=== PATIENT | female | born 1940 | race Caucasian/White ===

== ENCOUNTER 2024-02-09 13:58 | Outpatient (POV) | payer MEDICARE, SELFPAY ==
[2024-02-09 14:45] VITALS: BP 140/68; PULSE 75; RESP 18; O2SAT 98; BMI 29.2
--- NOTE | 2024-02-09 15:41 | EXP.PAIN.OV ---
HPI Data of Consult Patient: new to practice Consult date: 02/09/24 Requesting Physician: Emperatriz Siddiqi APRN Consult Narrative Reason for consult: Low back pain History of present illness: Ms. Weldon is a 83 year old female who presents today as a new patient. 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 Today she rates her pain a 0 out of 10. Patient states that she has a longstanding history of chronic low back pain that she did try conservative treatment such as oral medications, heat and ice, topicals, injection therapy in the past with minimal relief. She states that some injections would help better than others. Patient did then get tried for a intrathecal pain pump trial that did provide significant improvement and she currently is doing well with this therapy. Patient is not at home refill client and is currently managed with morphine 1 mg/mL with a daily dose of 0.1402 mg/day. She denies any side effects from this medication. She does state that this is helping currently and does not feel like she needs any additional adjustment changes. Patient does state that she drives about [address] that she would like if any way possible that she only has to come in the office once a year. Her Ron has been reviewed and is appropriate. CC: Emperatriz Siddiqi APRN [facility] Disclaimer: The information contained in this section may have been updated after the patient was seen, as this information can be updated by other users. Medical History (Updated 02/09/24 @ 15:51 by Emperatriz Siddiqi APRN) Presence of Watchman left atrial appendage closure device Cholecystitis Cataracts, bilateral Afib COPD (chronic obstructive pulmonary disease) HLD (hyperlipidemia) HTN (hypertension) Surgical History (Updated 02/09/24 @ 14:52 by Grace Bradley RN) Hx of cataract surgery History of loop recorder Family History (Updated 02/09/24 @ 14:52 by Grace Bradley RN) Other Unknown family medical history Social History (Updated 02/09/24 @ 14:53 by Grace Bradley RN) Smoking Status: Never smoker alcohol intake: never current occupational status: retired Travel in the last 8 weeks: None Review of Systems Review of Systems Review of systems:: pertinent systems reviewed and negative unless documented below Review of systems (narrative): Review of Systems: General: No recent weight changes, no fever, no sleep disturbances Respiratory: No cough, no shortness of air, no recurring pulmonary infections Cardiovascular/peripheral vascular: No chest pain, no palpitations, no edema, no shortness of breath Gastrointestinal: No new onset incontinence, normal bowel movements reported Genitourinary: No new onset incontinence Musculoskeletal: Low back pain Psychiatric: [Normal mood/affect] Neurological: [Denies weakness in extremities], [denies balance issues] Meds Home Medications and Allergies Home Medications Medication Instructions Recorded Confirmed Type diltiazem HCl 120 mg 120 mg PO DAILY HEART RATE 02/09/24 02/09/24 History capsule,extended release 24 hr levothyroxine 25 mcg tablet 25 mcg PO DAILY THYROID 02/09/24 02/09/24 History lisinopril 10 mg tablet 10 mg PO DIRECTED BLOOD PRESSURE 02/09/24 02/09/24 History propranolol 10 mg tablet 10 mg PO DIRECTED BLOOD PRESSURE 02/09/24 02/09/24 History New Prescriptions to Start Prescriptions: Allergies Allergy/AdvReac Type Severity Reaction Status Date / Time No Known Allergies Allergy Verified 02/09/24 15:08 Objective Vital signs: Pulse Resp BP Pulse Ox O2 Del Method 75 18 140/68 98 Room Air 02/09/24 14:45 02/09/24 14:45 02/09/24 14:45 02/09/24 14:45 02/09/24 14:45 Narrative: Physical Exam: General: Alert and oriented x3, no acute distress, pleasant and cooperative Lungs: Respirations even and unlabored, symmetrical chest expansion Eyes: PERRL Musculoskeletal: Flexion and extension of lumbar [spine] somewhat guarded secondary to pain, [antalgic gait noted] Neurological: Speech clear, no gross sensory deficit Assessment and Plan *Assessment and plan (1) Degenerative disc disease, lumbar: Status: Acute Category: Medical Code(s): M51.36 - Other intervertebral disc degeneration, lumbar region Plan Patient is doing well currently with her intrathecal morphine and does not require any additional adjustment. I will order the patient a compounded cream. Patient did have complaints that she had some tenderness around her pump site. I have recommended that she try the cream and that in future if it does not get better we can even try trigger point injections. Patient was counseled that I will plan on doing a 6-month telehealth visit and that then we will do a 6-month follow-up in the office. Patient was agreeable to this plan of care. Patient did also state that [facility] might be the closer clinic. I have discussed with the patient in future we will discuss if she wants to be sent to the [facility] location for her in person visits. Patient has been instructed to contact the clinic with any concerns before the next appointment. Dr. Acevedo has reviewed this note and agrees with this plan of care. This note was dictated using voice recognition software and make contain errors or omissions. -- It Is medically necessary for this patient to continue to have their intrathecal pump refilled at regular intervals. This patient had an intrathecal pain pump implanted after meeting criteria of chronic intractable pain for greater than 3 months and failing conservative treatments. Patient has committed and been compliant to the treatment plan and all planned follow up care. Since implantation of the intrathecal pain pump, the patient has had decreased pain and been more functional. Oral medications have been reduced including intake of oral opioids. Patient continues to do well with intrathecal therapy with decrease in pain symptoms and increase in functional status. Stopping intrathecal medications can lead to life threatening withdrawal, seizures, cardiac arrest, severe pain, and possible . Pumps that are not refilled at regular intervals can be damages and cause and need for replacement. We continually titrate dose and concentration to optimize pain relief and function. We are limited in concentration for certain drugs to safely deliver medications through the pump and stay within the recommendations from the Polyanalgesic Consensus Committee Guidelines. Depending on dose and concentration these pumps may need to be refilled sooner than 3 months as we titrate.
== END 2024-02-09 23:59 | disposition home or self-care (01) ==
PROVIDERS: Visit Provider Nurse Practitioner Family
DX: M51.36 Other intervertebral disc degeneration, lumbar region (principal); G89.29 Other chronic pain
CPT/HCPCS: 99202; G0463

== ENCOUNTER 2024-06-15 12:43 | Day surgery (SDC) | payer MEDICARE, SELFPAY ==
[2024-06-15 13:17] VITALS: BP 179/71; PULSE 74; RESP 16; TEMP 36.3; O2SAT 99; BMI 25.7
--- NOTE | 2024-06-15 13:52 | EXP.PAIN.PRO ---
Procedure Date: 06/15/24 Time: 13:30 Anesthesiologist:: Luiz Luis CRNA Complications:: None Pre-procedure Diagnosis:: Degenerative disc lumbar spine multilevels. Lumbar radiculopathy. Lumbar postlaminectomy syndrome. Post-procedure Diagnosis:: Same. Indications for Procedure:: Patient is a pleasant 83-year-old female who comes our clinic today for intrathecal pain pump interrogation and refill. Patient is currently being managed with morphine sulfate 1 mg/mL at a rate of 0.1402 mg/day. She is reporting low back pain that she describes as intermittent, dull, aching, sharp, stabbing at times. She is requesting increase in the pump rate. I think this is reasonable. I will increase her by 20%. Her new rate is 0.1684 mg/day. Patient is awake alert Bivalve x 3. In no acute distress. Flexion-extension lumbar spine somewhat guarded secondary to pain. Deep tendon reflexes upper lower extremities normal. Motor strength upper and lower extremities normal. There is no gross sensory deficit. Gait is normal. Procedure Details:: Details of the procedure explained to the patient. The patient taken procedure and placed in the sitting position. They over the pumps cleansed using chlorhexidine as a cleansing solution. The pump was interrogated. The pump was accessed with ease using a 22-gauge inch and half needle. 6 mL solution was withdrawn discarded appropriately. The pump was then filled with 20 cc of solution containing morphine sulfate 1 mg/mL. Pump rate will increase by 20%. The new rate is 0.1684 mg/day. Patient tolerated procedure without difficulty. There are no complications. Plan and Disposition:: Patient was discharged without incident
[2024-06-15 14:05] VITALS: BP 179/71; PULSE 74; RESP 16; O2SAT 99
== END 2024-06-15 14:05 | disposition home or self-care (01) ==
PROVIDERS: Visit Provider Nurse Anesthetist, Certified Registered
DX: M51.16 Intervertebral disc disorders with radiculopathy, lumbar region (principal); M96.1 Postlaminectomy syndrome, not elsewhere classified
CPT/HCPCS: 62370

== ENCOUNTER 2024-08-24 14:18 | Day surgery (SDC) | payer MEDICARE, SELFPAY ==
[2024-08-24 14:42] VITALS: BP 139/101; PULSE 68; RESP 18; TEMP 37.1; O2SAT 98; BMI 27.3
[2024-08-24 14:46] VITALS: BP 167/89; PULSE 74; RESP 16; O2SAT 96
[2024-08-24 14:48] VITALS: BP 167/89; PULSE 88; RESP 16; O2SAT 98
[2024-08-24 14:56] VITALS: BP 150/78; PULSE 68; RESP 18; TEMP 37; O2SAT 96
--- NOTE | 2024-08-24 15:00 | EXP.PAIN.PRO ---
Procedure Date: 08/24/24 Time: 14:40 Anesthesiologist:: Luiz Luis CRNA Complications:: None Pre-procedure Diagnosis:: Degenerative disc lumbar spine multilevels. Lumbar radiculopathy. Lumbar postlaminectomy syndrome. Post-procedure Diagnosis:: Same. Indications for Procedure:: Patient is a very pleasant 83-year-old female who comes our clinic today for intrathecal pain pump interrogation and refill. Patient currently being managed with morphine sulfate 1 mg/mL at 0.1684 mg/day. Patient is reporting some low back pain that she describes as constant, dull, aching across the low back. She denies radicular symptoms. She is requesting increase. I think this is reasonable. I will increase her intrathecal pain rate by 10%. Her new rate will be 0.1855 mg/day. Patient denies any side effects or complications with intrathecal pain pump. She rates her pain 6/10. Procedure Details:: Details of the procedure explained to the patient. The patient taken procedure and placed in the sitting position. The over the pumps cleansed using chlorhexidine as a cleansing solution. The pump was interrogated. The pump was accessed with ease using a 22-gauge inch and half needle. 7.5 mL of solution was withdrawn discarded appropriately. The pump was then filled with 20 cc of solution containing morphine sulfate 1 mg/mL. Pump rate will be increased by 10%. The new rate will be 0.1855 mg/day. Patient tolerated procedure without difficulty. There are no complications. Plan and Disposition:: Patient was discharged without incident.
== END 2024-08-24 14:57 | disposition home or self-care (01) ==
PROVIDERS: Visit Provider Nurse Anesthetist, Certified Registered
DX: M51.16 Intervertebral disc disorders with radiculopathy, lumbar region (principal); M96.1 Postlaminectomy syndrome, not elsewhere classified
CPT/HCPCS: 62370

== ENCOUNTER 2024-10-29 11:26 | Day surgery (SDC) | payer MEDICARE, SELFPAY ==
--- NOTE | 2024-10-29 11:33 | P.PCN_ITS ---
Procedure Date: 10/29/24 Time: 11:53 Anesthesiologist:: Emperatriz Siddiqi APRN Complications:: None Pre-procedure Diagnosis:: Degenerative disc disease of lumbar spine with lumbar radiculopathy symptoms Post-procedure Diagnosis:: Same Indications for Procedure:: Patient is a pleasant 84-year-old female who presents today for intrathecal refill and reprogram. Today she rates her pain a 0 out of 10. She states the pain is not bad today however yesterday it was much worse.Patient is experienced a little bit of carsickness from coming to our office today. She states that her drive here took 2 hours and that the roads were very curvy and that with the latter being up in certain areas it did increase her anxiety too. Patient is experiencing elevated blood pressure. Patient is currently managed with morphine 1 mg/mL with a daily dose of 0.1855 mg/day.she is asking if we can make additional adjustment. She is prescribed compounded cream from our office. Her Ron has been reviewed and is appropriate. Physical Exam: General: Alert and oriented x3, no acute distress, pleasant and cooperative Lungs: Respirations even and unlabored, symmetrical chest expansion Eyes: PERRL Musculoskeletal: Flexion and extension of lumbar [spine] somewhat guarded secondary to pain, [antalgic gait noted] Neurological: Speech clear, no gross sensory deficit Procedure Details:: Informed consent was obtained and the risk and benefits of the procedure were explained to the patient. The patient had noninvasive monitoring placed including noninvasive blood pressure cuff and pulse oximeter. Patient's pump was interrogated. The area over the pump was cleansed with chlorhexidine as a cleansing solution. In sterile fashion the pump was accessed with a 22-gauge needle. Approximately 7.2 mls of the pump solution was removed and discarded appropriately. The pump was then refilled with 20 mL's of morphine 1 mg/mL. The needle was withdrawn and a bandage was placed over the puncture site. The infusion rate was reprogrammed and increased 10% to morphine 0.2041 mg/day. The patient tolerated well with no complication. Plan and Disposition:: Patient tolerated the procedure well with no complications and was discharged neurologically intact. Patient is feeling better with the overall nauseousness however she is still having elevated blood pressure. Patient did state that she is on blood pressure medication however she did not take it this morning before arriving to our office. Patient was counseled that I would like for her to stay in our clinic setting for at least another 20 to 30 minutes following her pump refilled to see if her blood pressure does improve however if it does not that I am recommending she go to the ER for evaluation. Patient acknowledges understanding agrees with this plan of care. Patient will return to clinic on or before their next intrathecal refill date. We will see the patient back in the clinic at the next intrathecal refill. Patient has been instructed to contact the clinic with any concerns before the next appointment. Dr. Acevedo has reviewed this note and agrees with this plan of care. This note was dictated using voice recognition software and make contain errors or omissions. -- It Is medically necessary for this patient to continue to have their intrathecal pump refilled at regular intervals. This patient had an intrathecal pain pump implanted after meeting criteria of chronic intractable pain for greater than 3 months and failing conservative treatments. Patient has committed and been compliant to the treatment plan and all planned follow up care. Since implantation of the intrathecal pain pump, the patient has had decreased pain and been more functional. Oral medications have been reduced including intake of oral opioids. Patient continues to do well with intrathecal therapy with decrease in pain symptoms and increase in functional status. Stopping intrathecal medications can lead to life threatening withdrawal, seizures, cardiac arrest, severe pain, and possible . Pumps that are not refilled at regular intervals can be damages and cause and need for replacement. We continually titrate dose and concentration to optimize pain relief and function. We are limited in concentration for certain drugs to safely deliver medications through the pump and stay within the recommendations from the Polyanalgesic Con sensus Committee Guidelines. Depending on dose and concentration these pumps may need to be refilled sooner than 3 months as we titrate. A UDS is needed to verify patient's compliance with our office pain contract. This is ordered based off specific treatments related to chronic pain with the potential to abuse certain medications.
--- NOTE | 2024-10-29 11:40 | PC.NURSE ---
provider notified of pt elevated bp upon arrival. Pt reports got car sick on the way to the hospital for her appt. Pt is reporting feeling better at this time. Provider reports okay for pt to go to procedure room for PPR.
[2024-10-29 11:41] VITALS: BP 198/98; BP 219/105; PULSE 70; PULSE 74; RESP 16; RESP 18; TEMP 36.6; O2SAT 97; O2SAT 99; BMI 29.0
[2024-10-29 11:51] VITALS: BP 219/105; PULSE 74; RESP 18; O2SAT 97
[2024-10-29 12:04] VITALS: BP 186/97; PULSE 69; RESP 16; O2SAT 98
--- NOTE | 2024-10-29 12:29 | PC.NURSE ---
provider taylor baig called and notified of pt bp continues to be elevated at 197/84, pt reports getting a headache . Provider stated to tell pt she recommends she be seen in the ER for evaluation. Spoke with pt and her family member who were agreeable to being seen in ER. Pt reports she did not take her lisinopril this morning. Pt reports headache and nauseated. Pt taken to ER via wheelchair. Ely Cronin RN received report on pt.
== END 2024-10-29 12:04 | disposition home or self-care (01) ==
PROVIDERS: Visit Provider Nurse Practitioner Family
DX: M51.16 Intervertebral disc disorders with radiculopathy, lumbar region (principal)
CPT/HCPCS: 62370

== ENCOUNTER 2024-10-29 12:23 | Emergency (ER) | payer MEDICARE, SELFPAY ==
[2024-10-29 13:03] VITALS: BP 153/105; PULSE 77; O2SAT 96
[2024-10-29 13:09] VITALS: BP 153/105; PULSE 70; RESP 16; TEMP 36.6; O2SAT 96; BMI 29.0
--- NOTE | 2024-10-29 13:22 | ED_ITS ---
<Statement entered by Emperatriz Najera DO - 10/29/24 17:57> I was consulted by the DENIZ, and we discussed the complexity of the problems being addressed. I approved the treatment and management plan for this patient's care in the emergency department, thus performing a substantive portion of the medical decision making. Emperatriz Najera DO Discharge Plan Disposition Patient Disposition: Home, Self-Care Condition: Good Prescriptions Prescriptions: New ondansetron 4 mg tablet,disintegrating 4 mg PO QID PRN (Reason: nausea and vomiting) Qty: 10 0RF No Action levothyroxine 25 mcg tablet 25 mcg PO DAILY propranolol 10 mg tablet 10 mg PO DIRECTED lisinopril 10 mg tablet 10 mg PO DIRECTED diltiazem HCl 120 mg capsule,extended release 24hr 120 mg PO DAILY Referrals Follow up/Referrals: Provider,Referral, MD [Primary Care Provider] - See instructions Activity Restrictions/Add. Instructions Additional Instructions/Restrictions: As we discussed I have sent in antinausea medicine to your pharmacy to help with your occasional nausea. Please check your blood pressure when you get home. If you have continued headache nausea and elevated blood pressure I recommend close follow-up with your PCP or return to the ER as needed. Clinical Impressions Clinical Impression: Hypertension, uncontrolled, Nausea, Headache Print Language Print Language: Bel[place]ian Discharge ED Provider: Emperatriz Najera General Adult HPI General Chief complaint: Recheck/Abnormal Lab/Rx Stated complaint: elevated blood pressure sent by Pain management Time Seen by Provider: 10/29/24 13:22 Mode of Arrival: Wheelchair Source of Information: Patient Description of Symptoms (Recalled from ER Triage Doc. by RN): Patient states that she was seen in the pain clinic when her BP went up and she became nauseous with a headache. States that she just thought that she was car sick and that it was related to her not taking her Lisinopril this morning. History of Present Illness HPI narrative: Patient presents from pain clinic initially with an elevated blood pressure. Patient states that she has a longstanding history of migraine headaches that she typically takes Tylenol for. Patient began having a normal for her migraine symptoms and felt a little nauseous. Patient was in a hurry to make it to her pain management appointment today and states that she forgot to take her lisinopril. Patient reports that when she arrived at the pain management clinic her blood pressure was over 200 systolic. She denies any focal neurologic deficits any change in mental status any abnormal sensory loss numbness tingling chest pain shortness of breath fever chills mops this hematochezia melena vomiting or diarrhea. Related Data Home Medications ?Medication ?Instructions ?Recorded ?Confirmed diltiazem HCl 120 mg 120 mg PO DAILY HEART RATE 02/09/24 08/24/24 capsule,extended release 24 hr levothyroxine 25 mcg tablet 25 mcg PO DAILY THYROID 02/09/24 08/24/24 lisinopril 10 mg tablet 10 mg PO DIRECTED BLOOD PRESSURE 02/09/24 08/24/24 propranolol 10 mg tablet 10 mg PO DIRECTED BLOOD PRESSURE 02/09/24 08/24/24 Previous Rx's ?Medication ?Instructions ?Recorded ondansetron 4 mg disintegrating 4 mg PO QID PRN nausea and 10/29/24 tablet vomiting #10 tabs Allergies Allergy/AdvReac Type Severity Reaction Status Date / Time No Known Allergies Allergy Verified 08/24/24 14:44 [facility] Disclaimer: The information contained in this section may have been updated after the patient was seen, as this information can be updated by other users. Medical History (Updated 10/29/24 @ 14:22 by SOCORRO Wilde) Presence of Watchman left atrial appendage closure device Cholecystitis Cataracts, bilateral Afib COPD (chronic obstructive pulmonary disease) HLD (hyperlipidemia) HTN (hypertension) Surgical History Hx of cataract surgery History of loop recorder Family History Other Unknown family medical history Social History Smoking Status: Never smoker alcohol intake: never current occupational status: retired Travel in the last 8 weeks: None Have you lived/traveled outside US in past 30 days?: No Contact w/someone who lives/traveled outside US past 30 days?: No Exposure to someone with infectious disease in past 14 days?: No Do you have a fever (greater than 100.4 F or 38 C)?: No Have you tested positive for COVID-19: No Exposed to someone with COVID-19 in past 14 days?: No Do you have a sore throat?: No Do you have a cough?: No Do you have any weakness?: Yes Do you have any diarrhea?: No Are you experiencing any unusual bleeding?: No Do you have any muscle aches/pain?: No Do you have any abdominal pain?: No Are you experiencing loss of taste or smell?: No Other Medical History Have you received the Flu Vaccine for this season: No Have you received the Pneumonia Vaccine: No ROS Obtained: Yes Systems reviewed as appropriate & no additional complaints except as documented Physical Exam General General appearance: alert and in no apparent distress Respiratory Respiratory exam: Present normal lung sounds bilaterally Cardiovascular Cardiovascular exam: Present regular rate Neurological Exam Neurological exam: Present alert, oriented X3, CN II-XII intact and normal gait; Absent motor sensory deficit Medical Decision Making Medical Records Medical records reviewed: Yes I reviewed the patient's medical records. Screening: Per USPSTF and CDC recommendations, given the prevalence of disease in our reg ion, it is our hospital?s policy to screen for HIV and viral Hepatitis for all patients aged 18 and over and those with ongoing risk factors. Ron Inquiry Pt receiving controlled substance: No Vital Signs: 10/29/24 13:03 10/29/24 13:09 10/29/24 13:31 Temperature 97.9 F Temperature Source Oral Pulse Rate 77 67 Pulse Rate [Radial] 70 Respiratory Rate 16 Blood Pressure 153/105 H 177/75 H Blood Pressure [Right Arm] 153/105 H Blood Pressure Mean [Right Arm] 121 Blood Pressure Source [Right Arm] Automatic Cuff Blood Pressure Position [Right Arm] Sitting 02 Sat by Pulse Oximetry 96 96 95 Oxygen Delivery Method Room Air Room Air Room Air 10/29/24 14:01 Temperature Temperature Source Pulse Rate 67 Pulse Rate [Radial] Respiratory Rate Blood Pressure 184/92 H Blood Pressure [Right Arm] Blood Pressure Mean [Right Arm] Blood Pressure Source [Right Arm] Blood Pressure Position [Right Arm] 02 Sat by Pulse Oximetry 98 Oxygen Delivery Method Room Air Orders (Tests/Meds): ED MEDICATIONS Discontinued Medications Generic Name Dose Route Start Last Admin Trade Name Freq PRN Reason Stop Dose Admin Ibuprofen 800 mg 10/29/24 13:42 10/29/24 13:58 Ibuprofen 400 Mg Tablet PO 10/29/24 13:43 800 mg ONCE ONE Administration Lisinopril 10 mg 10/29/24 13:41 10/29/24 13:58 Lisinopril 10mg Tablet PO 10/29/24 13:42 10 mg ONCE ONE Administration Ondansetron HCl 4 mg 10/29/24 13:40 10/29/24 13:59 Ondansetron 4mg Odt SL 10/29/24 13:41 4 mg ONCE ONE Administration ORDERS Category Date Time Status HIV Combo Stat Lab 10/29/24 13:12 Ordered Hepatitis C Ab Qual. W/ RFX Stat Lab 10/29/24 13:12 Ordered Medical Decision Narrative: In summary patient is a 84-year-old female who presents to the emergency department for evaluation of elevated blood pressure. Patient is slightly hypertensive on arrival with a blood pressure 153/105 breathing 16 times a minute satting at 96% on room air with a heart rate of 77 with normal sinus rhythm on the bedside monitor upon arrival, afebrile. Physical exam is remarkable for no posterior cervical tenderness no nuchal rigidity or meningeal signs, patient has full range of motion of the C-spine, pupils equal round reac tive to light, breath sounds clear and equal bilaterally to the bases without active sounds, patient has no dependent edema, [place] Coma Score is 15 patient is awake alert and oriented person place circumstance.. Differential diagnosis includes essential hypertension with missed medication versus migraine versus viral syndrome versus electrolyte abnormality etc. Initial workup was considered with labs and imaging however via shared decision making discussion with the patient she does not feel out of the ordinary as she frequently has headaches that cause nausea and her blood pressure definitely raises when she does not take her medication. Patient has no red flags including any focal neurologic deficits intractable nausea vomiting altered mental status to suggest that this is anything other than what has the patient is presenting at for now. Via patient directed decision making she elects not to pursue any labs and imaging and would like to try Zofran and a dose of lisinopril to see if that makes her feel better. Thus we will order a dose lisinopril Zofran at patient request and reevaluate. Upon reevaluation at 1420 patient is now tolerating oral intake her nausea is gone her headache is better and via patient directed decision making and discharge she feels ready to go home with close follow-up with her PCP thus we will discharge the patient home with close follow-up with her PCP and recommendations to check her blood pressure again when she gets home and strict return precautions.. Critical Care Critical Care Time Critical Care Time: No
[2024-10-29 13:31] VITALS: BP 177/75; PULSE 67; O2SAT 95
[2024-10-29] MEDS: LISINOPRIL 10MG TABLET 10 MG PO (13:58)
[2024-10-29] MEDS: IBUPROFEN 400 MG TABLET 800 MG PO (13:58)
[2024-10-29] MEDS: ONDANSETRON 4MG ODT 4 MG SL (13:59)
[2024-10-29 14:01] VITALS: BP 184/92; PULSE 67; O2SAT 98
[2024-10-29 14:32] VITALS: BP 196/78; PULSE 70; RESP 18; TEMP 36.6; O2SAT 97
== END 2024-10-29 14:32 | disposition home or self-care (01) ==
PROVIDERS: Emergency Provider Emergency Medicine
DX: R51.9 Headache, unspecified (principal); R11.0 Nausea; I10 Essential (primary) hypertension
CPT/HCPCS: 99283; Q0162

== ENCOUNTER 2024-12-13 11:43 | Outpatient (POV) | payer MEDICARE, SELFPAY ==
[2024-12-13 12:24] VITALS: BP 178/77; BP 180/86; PULSE 62; RESP 14; O2SAT 99
--- NOTE | 2024-12-13 12:41 | EXP.PAIN.PRO ---
Procedure Date: 12/13/24 Time: 12:41 Anesthesiologist:: Emperatriz Siddiqi APRN Complications:: None Pre-procedure Diagnosis:: Degenerative disc disease of lumbar spine with lumbar radiculopathy symptoms, chronic pain syndrome Post-procedure Diagnosis:: Same Indications for Procedure:: Patient is a pleasant 84-year-old female who presents today for increased mid back pain. Today she rates her pain overall a 1 out of 10. Patient states that she just feels like she has had increased mid back pain and that the pump increases to help however is asking if there is anything else we can do additionally. Patient states it just feels like it is around her mid back and radiates down. Patient did get her a I-S at home adjustments approved. Patient is currently managed with morphine 1 mg/mL with a daily dose of 0.1855 mg/day. She denies any side effects. Her Ron has been reviewed and is appropriate. Physical Exam: General: Alert and oriented x3, no acute distress, pleasant and cooperative Lungs: Respirations even and unlabored, symmetrical chest expansion Eyes: PERRL Musculoskeletal: Flexion and extension of lumbar [spine] somewhat guarded secondary to pain, [antalgic gait noted] Neurological: Speech clear, no gross sensory deficit Procedure Details:: Informed consent was obtained and the risk and benefits of the procedure were explained to the patient. Patient did have noninvasive monitoring was placed including noninvasive blood pressure cuff and pulse oximeter. Patient's pump was interrogated and was reprogrammed to periodic dosing of 0.24 mg/day. The patient tolerated the procedure well with no complications. Plan and Disposition:: Patient tolerated the procedure well with no complications and was discharged neurologically intact. I will also send in methocarbamol 500 mg twice daily as needed. Patient will return to clinic on or before their next intrathecal refill date. We will see the patient back in the clinic at the next intrathecal refill. Patient has been instructed to contact the clinic with any concerns before the next appointment. Dr. Acevedo has reviewed this note and agrees with this plan of care. This note was dictated using voice recognition software and make contain errors or omissions. -- It Is medically necessary for this patient to continue to have their intrathecal pump refilled at regular intervals. This patient had an intrathecal pain pump implanted after meeting criteria of chronic intractable pain for greater than 3 months and failing conservative treatments. Patient has committed and been compliant to the treatment plan and all planned follow up care. Since implantation of the intrathecal pain pump, the patient has had decreased pain and been more functional. Oral medications have been reduced including intake of oral opioids. Patient continues to do well with intrathecal therapy with decrease in pain symptoms and increase in functional status. Stopping intrathecal medications can lead to life threatening withdrawal, seizures, cardiac arrest, severe pain, and possible . Pumps that are not refilled at regular intervals can be damages and cause and need for replacement. We continually titrate dose and concentration to optimize pain relief and function. We are limited in concentration for certain drugs to safely deliver medications through the pump and stay within the recommendations from the Polyanalgesic Consensus Committee Guidelines. Depending on dose and concentration these pumps may need to be refilled sooner than 3 months as we titrate. A UDS is needed to verify patient's compliance with our office pain contract. This is ordered based off specific treatments related to chronic pain with the potential to abuse certain medications.
== END 2024-12-13 23:59 | disposition home or self-care (01) ==
PROVIDERS: Visit Provider Nurse Practitioner Family
DX: G89.4 Chronic pain syndrome (principal); M51.16 Intervertebral disc disorders with radiculopathy, lumbar region
CPT/HCPCS: 62368; 99212; 99213; G0463

== ENCOUNTER 2024-12-31 13:19 | Day surgery (SDC) | payer MEDICARE, SELFPAY ==
--- NOTE | 2024-12-31 13:30 | EXP.HP ---
History of Present Illness *Admission Date: 12/31/24 *Reason for visit:: Intrathecal refill; DDD PFSH PFS Disclaimer: The information contained in this section may have been updated after the patient was seen, as this information can be updated by other users. Medical History Presence of Watchman left atrial appendage closure device Cholecystitis Cataracts, bilateral Afib COPD (chronic obstructive pulmonary disease) HLD (hyperlipidemia) HTN (hypertension) Surgical History Hx of cataract surgery History of loop recorder Family History Other Unknown family medical history Social History Smoking Status: Never smoker alcohol intake: never current occupational status: other Travel in the last 8 weeks?: None Have you lived/traveled outside US in past 30 days?: No Contact w/someone who lives/traveled outside US past 30 days?: No Exposure to someone with infectious disease in past 14 days?: No Do you have a fever (greater than 100.4 F or 38 C)?: No Have you tested positive for COVID-19?: No Exposed to someone with COVID-19 in past 14 days?: No Do you have a sore throat?: No Do you have a cough?: No Do you have any weakness?: No Do you have any diarrhea?: No Are you experiencing any unusual bleeding?: No Do you have any muscle aches/pain?: No Do you have any abdominal pain?: No Are you experiencing loss of taste or smell?: No Other Medical History Have you received the Flu Vaccine for this season: Yes Have you received the Pneumonia Vaccine: Yes Review of Systems Review of Systems Review of systems:: pertinent systems reviewed and negative unless documented below Review of systems (narrative): Review of Systems: General: No recent weight changes, no fever, no sleep disturbances Respiratory: No cough, no shortness of air, no recurring pulmonary infections Cardiovascular/peripheral vascular: No chest pain, no palpitations, no edema, no shortness of breath Gastrointestinal: No new onset incontinence, normal bowel movements reported Genitourinary: No new onset incontinence Musculoskeletal: Chronic back pain Psychiatric: [Normal mood/affect] Neurological: [Denies weakness in extremities], [denies balance issues] Meds Home Medications and Allergies Home Medications ?Medication ?Instructions ?Recorded ?Confirmed ?Type diltiazem HCl 120 mg 120 mg PO DAILY HEART RATE 02/09/24 12/31/24 History capsule,extended release 24 hr levothyroxine 25 mcg tablet 25 mcg PO DAILY THYROID 02/09/24 12/31/24 History lisinopril 10 mg tablet 10 mg PO DIRECTED BLOOD PRESSURE 02/09/24 12/31/24 History propranolol 10 mg tablet 10 mg PO DIRECTED BLOOD PRESSURE 02/09/24 12/31/24 History ondansetron 4 mg disintegrating 4 mg PO QID PRN nausea and 10/29/24 12/31/24 Rx tablet vomiting #10 tabs prednisone 20 mg tablet 20 mg PO BID #10 tabs 11/11/24 12/13/24 Rx methocarbamol 500 mg tablet 500 mg PO BID #28 tabs 12/13/24 12/31/24 Rx New Prescriptions to Start Prescriptions: Allergies Allergy/AdvReac Type Severity Reaction Status Date / Time No Known Allergies Allergy Verified 08/24/24 14:44 Exam Constitutional Constitutional: no acute distress *Routine HEENT Exam Head: Present normocephalic and atraumatic Eye: Present PERRL ENT: Present mucous membranes moist *Routine Neck Exam Neck: Present supple *Routine Respiratory Exam Respiratory: Present CTA bilaterally *Routine Cardiovascular Exam Cardiovascular: Present RRR *Routine Abdominal Exam Abdominal: Present soft *Routine Rectal Exam Rectal:: deferred *Routine Genitalia Exam Genitalia:: normal female Routine Back/Spine/Pelvis Exam Back/Spine: Present pain with flexion *Routine Skin Exam Skin: Present intact, dry and warm *Routine Neurological Exam Neurological: Present alert and oriented X3 Routine Psychiatric Exam Psychiatric: Present normal affect and normal thought process Assessment and Plan *Assessment and plan (1) Degenerative disc disease, lumbar: Status: Acute Category: Medical Code(s): M51.369 - Other intervertebral disc degeneration, lumbar region without mention of lumbar back pain or lower extremity pain Plan Patient has been instructed to contact the clinic with any concerns before the next appointment. Dr. Acevedo has reviewed this note and agrees with this plan of care. This note was dictated using voice recognition software and make contain errors or omissions. All injections are used with Lidocaine, Bupivacaine and dexamethasone. Occasionally urine drug screen is needed to verify patient's compliance with our office pain contract. This is ordered based off specific treatments related to chronic pain with the potential to abuse certain medications.
[2024-12-31 13:31] VITALS: BP 159/73; PULSE 72; RESP 16; O2SAT 98; BMI 27.4
--- NOTE | 2024-12-31 13:32 | P.PCN_ITS ---
Procedure Date: 12/31/24 Time: 13:40 Anesthesiologist:: Emperatriz Siddiqi APRN Complications:: None Pre-procedure Diagnosis:: Degenerative disc disease of lumbar spine, chronic pain syndrome Post-procedure Diagnosis:: Same Indications for Procedure:: Patient is a pleasant 84-year-old female who presents today for intrathecal refill and reprogram. Today she rates her pain a 3 out of 10. Patient does state however that this previous weekend she did have more severe pain unrelated to any specific fall or injury. She states it was a very bad time and would like to see about additional adjustment on her pump. Patient is currently managed with morphine 1 mg/mL with a daily dose of 0.24 mg/day. She denies any side effects. At our last visit we did send in a prescription of methocarbamol 500 mg twice a day as needed however she states that she never did try this that she was worried that it would just make her aware she could not function or at increased risk for falls. Patient denies any other changes.She is prescribed compounded cream from our office. Her Ron has been reviewed and is appropriate. Physical Exam: General: Alert and oriented x3, no acute distress, pleasant and cooperative Lungs: Respirations even and unlabored, symmetrical chest expansion Eyes: PERRL Musculoskeletal: Flexion and extension of lumbar [spine] somewhat guarded secondary to pain, [antalgic gait noted] Neurological: Speech clear, no gross sensory deficit Procedure Details:: Informed consent was obtained and the risk and benefits of the procedure were explained to the patient. The patient had noninvasive monitoring placed including noninvasive blood pressure cuff and pulse oximeter. Patient's pump was interrogated. The area over the pump was cleansed with chlorhexidine as a cleansing solution. In sterile fashion the pump was accessed with a 22-gauge needle. Approximately 6 mls of the pump solution was removed and discarded appropriately. The pump was then refilled with 20 mL's of morphine 1 mg/mL. The needle was withdrawn and a bandage was placed over the puncture site. The infusion rate was reprogrammed and increased 5% to morphine 0.24 mg/day. The patient tolerated well with no complication. Plan and Disposition:: Patient tolerated the procedure well with no complications and was discharged neurologically intact. I did discuss with patient due to the fact that she felt like she did need possible additional adjustment that she has set up with [facility] and that they can come to her home and make these adjustments. We will also reach out to the [facility] nurse and make sure that she is checking in more frequently with [facility] for possible additional adjustment. Patient will return to clinic on or before their next intrathecal refill date. We will see the patient back in the clinic at the next intrathecal refill. Patient has been instructed to contact the clinic with any concerns before the next appointment. Dr. Acevedo has reviewed this note and agrees with this plan of care. This note was dictated using voice recognition software and make contain errors or omissions. -- It Is medically necessary for this patient to continue to have their intrathecal pump refilled at regular intervals. This patient had an intrathecal pain pump implanted after meeting criteria of chronic intractable pain for greater than 3 months and failing conservative treatments. Patient has committed and been compliant to the treatment plan and all planned follow up care. Since implantation of the intrathecal pain pump, the patient has had decreased pain and been more functional. Oral medications have been reduced including intake of oral opioids. Patient continues to do well with intrathecal therapy with decrease in pain symptoms and increase in functional status. Stopping i ntrathecal medications can lead to life threatening withdrawal, seizures, cardiac arrest, severe pain, and possible . Pumps that are not refilled at regular intervals can be damages and cause and need for replacement. We continually titrate dose and concentration to optimize pain relief and function. We are limited in concentration for certain drugs to safely deliver medications through the pump and stay within the recommendations from the Polyanalgesic Consensus Committee Guidelines. Depending on dose and concentration these pumps may need to be refilled sooner than 3 months as we titrate. A UDS is needed to verify patient's compliance with our office pain contract. This is ordered based off specific treatments related to chronic pain with the potential to abuse certain medications.
[2024-12-31 13:35] VITALS: BP 124/82; PULSE 77; RESP 18; O2SAT 94
[2024-12-31 13:58] VITALS: BP 153/94; PULSE 69; RESP 16; O2SAT 98
== END 2024-12-31 13:58 | disposition home or self-care (01) ==
PROVIDERS: Visit Provider Nurse Practitioner Family
DX: M51.369 Other intervertebral disc degeneration, lumbar region without mention of lumbar back pain or lower extremity pain (principal); G89.4 Chronic pain syndrome; J44.9 Chronic obstructive pulmonary disease, unspecified; I48.91 Unspecified atrial fibrillation; I10 Essential (primary) hypertension; E78.5 Hyperlipidemia, unspecified; Z79.899 Other long term (current) drug therapy; Z79.891 Long term (current) use of opiate analgesic
CPT/HCPCS: 62370

== ENCOUNTER 2025-02-10 10:11 | Day surgery (SDC) | payer MEDICARE, SELFPAY ==
[2025-02-10 10:34] VITALS: BP 195/103; PULSE 75; RESP 18; O2SAT 94; BMI 29.0
--- NOTE | 2025-02-10 10:35 | EXP.PM.HP ---
History of Present Illness *Admission Date: 02/10/25 *Reason for visit:: Intrathecal refill; DDD *History of present illness: Same [facility] Disclaimer: The information contained in this section may have been updated after the patient was seen, as this information can be updated by other users. Medical History Presence of Watchman left atrial appendage closure device Cholecystitis Cataracts, bilateral Afib COPD (chronic obstructive pulmonary disease) HLD (hyperlipidemia) HTN (hypertension) Surgical History Hx of cataract surgery History of loop recorder Family History Other Unknown family medical history Social History Smoking Status: Never smoker alcohol intake: never current occupational status: other Travel in the last 8 weeks?: None Have you lived/traveled outside [place] in past 30 days?: No Contact w/someone who lives/traveled outside [place] past 30 days?: No Exposure to someone with infectious disease in past 14 days?: No Do you have a fever (greater than 100.4 F or 38 C)?: No Have you tested positive for COVID-19?: No Exposed to someone with COVID-19 in past 14 days?: No Do you have a sore throat?: No Do you have a cough?: No Do you have any weakness?: No Do you have any diarrhea?: No Are you experiencing any unusual bleeding?: No Do you have any muscle aches/pain?: No Do you have any abdominal pain?: No Are you experiencing loss of taste or smell?: No Other Medical History Have you received the Flu Vaccine for this season: Yes Have you received the Pneumonia Vaccine: Yes Review of Systems Review of Systems Review of systems:: pertinent systems reviewed and negative unless documented below Review of systems (narrative): Review of Systems: General: No recent weight changes, no fever, no sleep disturbances Respiratory: No cough, no shortness of air, no recurring pulmonary infections Cardiovascular/peripheral vascular: No chest pain, no palpitations, no edema, no shortness of breath Gastrointestinal: No new onset incontinence, normal bowel movements reported Genitourinary: No new onset incontinence Musculoskeletal: Chronic back pain Psychiatric: [Normal mood/affect] Neurological: [Denies weakness in extremities], [denies balance issues] Meds Home Medications and Allergies Home Medications ?Medication ?Instructions ?Recorded ?Confirmed ?Type diltiazem HCl 120 mg 120 mg PO DAILY HEART RATE 02/09/24 02/10/25 History capsule,extended release 24 hr levothyroxine 25 mcg tablet 25 mcg PO DAILY THYROID 02/09/24 02/10/25 History lisinopril 10 mg tablet 10 mg PO DIRECTED BLOOD PRESSURE 02/09/24 02/10/25 History propranolol 10 mg tablet 10 mg PO DIRECTED BLOOD PRESSURE 02/09/24 02/10/25 History ondansetron 4 mg disintegrating 4 mg PO QID PRN nausea and 10/29/24 02/10/25 Rx tablet vomiting #10 tabs prednisone 20 mg tablet 20 mg PO BID #10 tabs 11/11/24 02/10/25 Rx methocarbamol 500 mg tablet 500 mg PO BID #28 tabs 12/13/24 02/10/25 Rx New Prescriptions to Start Prescriptions: Allergies Allergy/AdvReac Type Severity Reaction Status Date / Time No Known Allergies Allergy Verified 08/24/24 14:44 Exam Constitutional Constitutional: no acute distress *Routine HEENT Exam Head: Present normocephalic and atraumatic Eye: Present PERRL ENT: Present mucous membranes moist *Routine Neck Exam Neck: Present supple *Routine Respiratory Exam Respiratory: Present CTA bilaterally *Routine Cardiovascular Exam Cardiovascular: Present RRR *Routine Abdominal Exam Abdominal: Present soft *Routine Rectal Exam Rectal:: deferred *Routine Genitalia Exam Genitalia:: deferred Routine Back/Spine/Pelvis Exam Back/Spine: Present pain with flexion *Routine Skin Exam Skin: Present intact, dry and warm *Routine Neurological Exam Neurological: Present alert and oriented X3 Routine Psychiatric Exam Psychiatric: Present normal affect and normal thought process Assessment and Plan *Assessment and plan (1) Degenerative disc disease, lumbar: Status: Acute Category: Medical Code(s): M51.369 - Other intervertebral disc degeneration, lumbar region without mention of lumbar back pain or lower extremity pain Plan Patient has been instructed to contact the clinic with any concerns before the next appointment. Dr. Acevedo has reviewed this note and agrees with this plan of care. This note was dictated using voice recognition software and make contain errors or omissions. All injections are used with Lidocaine, Bupivacaine and dexamethasone. Occasionally urine drug screen is needed to verify patient's compliance with our office pain contract. This is ordered based off specific treatments related to chronic pain with the potential to abuse certain medications.
--- NOTE | 2025-02-10 10:36 | EXP.PAIN.PRO ---
Procedure Date: 02/10/25 Time: 11:00 Anesthesiologist:: Emperatriz Siddiqi APRN Complications:: None Pre-procedure Diagnosis:: Degenerative disc disease of lumbar spine, chronic pain syndrome Post-procedure Diagnosis:: Same Indications for Procedure:: Patient is a pleasant 89-year-old female who presents today for intrathecal refill and reprogram. She has having elevated blood pressure again at today's visit. Patient states that she ended up taking her blood pressure medication before coming however she ended up vomiting and is unsure whether or not this actually even got ingested. Patient states that she is not having any pain she states that the pump is doing well from the last visit and denies any side effects. Patient is currently managed with morphine 1 mg/mL with a daily dose of 0.2519mg/day. Her Ron has been reviewed. Patient is also managed with methocarbamol 500 mg twice a day as needed from our office. Physical Exam: General: Alert and oriented x3, no acute distress, pleasant and cooperative Lungs: Respirations even and unlabored, symmetrical chest expansion Eyes: PERRL Musculoskeletal: Flexion and extension of lumbar [spine] somewhat guarded secondary to pain, [antalgic gait noted] Neurological: Speech clear, no gross sensory deficit Procedure Details:: Informed consent was obtained and the risk and benefits of the procedure were explained to the patient. The patient had noninvasive monitoring placed including noninvasive blood pressure cuff and pulse oximeter. Patient's pump was interrogated. The area over the pump was cleansed with chlorhexidine as a cleansing solution. In sterile fashion the pump was accessed with a 22-gauge needle. Approximately 9.3 mls of the pump solution was removed and discarded appropriately. The pump was then refilled with 20 mL's of morphine 1 mg/mL. The needle was withdrawn and a bandage was placed over the puncture site. The infusion rate was reprogrammed and continued at its current dosage. The patient tolerated well with no complication. Plan and Disposition:: Patient tolerated the procedure well with no complications and was discharged neurologically intact. Patient did have elevated blood pressure during today's visit we have counseled her to continue to monitor this at home and to call her primary care if it continues to be elevated that she may need additional adjustment with her current medications. Patient acknowledges understanding agrees with this plan of care. Patient will return to clinic on or before their next intrathecal refill date. We will see the patient back in the clinic at the next intrathecal refill. Patient has been instructed to contact the clinic with any concerns before the next appointment. Dr. Acevedo has reviewed this note and agrees with this plan of care. This note was dictated using voice recognition software and make contain errors or omissions. -- It Is medically necessary for this patient to continue to have their intrathecal pump refilled at regular intervals. This patient had an intrathecal pain pump implanted after meeting criteria of chronic intractable pain for greater than 3 months and failing conservative treatments. Patient has committed and been compliant to the treatment plan and all planned follow up care. Since implantation of the intrathecal pain pump, the patient has had decreased pain and been more functional. Oral medications have been reduced including intake of oral opioids. Patient continues to do well with intrathecal therapy with decrease in pain symptoms and increase in functional status. Stopping intrathecal medications can lead to life threatening withdrawal, seizures, cardiac arrest, severe pain, and possible . Pumps that are not refilled at regular intervals can be damages and cause and need for replacement. We continually titrate dose and concentration to optimize pain relief and function. We are limited in concentration for certain drugs to safely deliver medications through the pump and stay within the recommendations from the [employer] Consensus [employer] Guidelines. Depending on dose and concentration these pumps may need to be refilled sooner than 3 months as we titrate. A UDS is needed to verify patient's compliance with our office pain contract. This is ordered based off specific treatments related to chronic pain with the potential to abuse certain medications.
[2025-02-10 11:12] VITALS: BP 162/87; PULSE 70; RESP 18; O2SAT 95
[2025-02-10 11:30] VITALS: BP 189/95; PULSE 75; RESP 18; O2SAT 94
== END 2025-02-10 11:12 | disposition home or self-care (01) ==
PROVIDERS: Visit Provider Nurse Practitioner Family
DX: M51.369 Other intervertebral disc degeneration, lumbar region without mention of lumbar back pain or lower extremity pain (principal); G89.4 Chronic pain syndrome; I48.91 Unspecified atrial fibrillation; J44.9 Chronic obstructive pulmonary disease, unspecified; E78.5 Hyperlipidemia, unspecified; I10 Essential (primary) hypertension; Z95.818 Presence of other cardiac implants and grafts; Z79.890 Hormone replacement therapy; Z79.52 Long term (current) use of systemic steroids
CPT/HCPCS: 62370